=== PATIENT | female | born 1955 | race Caucasian/White ===

== ENCOUNTER 2020-08-15 14:39 | Emergency (ER) | payer MEDICARE, SELFPAY ==
--- NOTE | ~2020-08-15 | XR_ITS ---
EXAMINATION: XR chest 2V EXAM DATE: 08/15/2020 15:10 INDICATION: Back pain with fever . TECHNIQUE: Frontal and lateral projections of the chest obtained and reviewed. There is no prior melisa dy for comparison. FINDINGS: The lungs are clear. There are no pleural effusions. The cardiomediastinal silhouette is within normal limits. There is no pneumothorax suspected. Mild lower thoracic dextroscoliosis. IMPRESSION: No acute cardiopulmonary findings. Reviewed, dictated and finalized at location A. 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
[2020-08-15 14:57] VITALS: O2SAT 100
[2020-08-15 15:00] VITALS: BP 143/83; PULSE 102; RESP 18; TEMP 37.9; O2SAT 100
--- NOTE | 2020-08-15 15:14 | ED.BACK ---
HPI - Back Pain/Injury General Chief Complaint: Back Pain/Injury Stated Complaint: Back Pain Source: patient and RN notes reviewed Limitations: no limitations History of Present Illness HPI Narrative: The patient, a non-smoker/nondrinker, presents with left-sided, upper back pain. Patient states she is on minimal meds only for HTN, without meds for risk factors of HLD, AODM, early cardiac FMH. She now complains of a shorter 1 day history of left chest pain, posteriorly- that is worse with movement or deep breathing. No rash, known fever, cough, S OB, calf pain/edema, precordial CP, recent trips loss, loss of taste / smell; no frequency/urgency/dysuria, hematuria. She comments this is like muscular pain she had on the opposite side years ago; she has a prior normal cardiac stress test in remote past. Patient advised to go to hospital for further testing, which she declines repeatedly. Related Data Home Medications Medication Instructions Recorded Confirmed bupropion HCl mg PO 08/15/20 triamterene-hydrochlorothiazid tablet 08/15/20 Allergies Allergy/AdvReac Type Severity Reaction Status Date / Time No Known Allergies Allergy Mild Unverified 09/05/08 13:29 Review of Systems Review of Systems: Narrative: General/Constitutional: No weight loss,fever Eyes: N0: Redness,discharge Ears/Nose/Throat: No: Epistaxis,ear discharge Respiratory: Denies: Hemoptysis Gastrointestinal: No Vomiting, Bleeding-rectal Skin: No Lumps, eruption Neurologic: No Focal Weakness,Sz Hematologic: Denies: Petechiae/Purpura Psychiatric: No: Suicida ideationl All Other Systems: Reviewed and Negative [facility] Comments At time of signature, agree with nursing past medical, surgical, social and family history. There is no relevant family history pertinent to the presenting complaint Exam Narrative: Exam Narrative: General Appearance: Well appearing, No distress EYE: PERRLA, Conjunctiva clear Ears: External ear normal Nose: Normal nose Mouth/Throat: Normal appearing, Normal lips, Supple Respiratory: Airway patent, No respiratory distress Cardiovascular: RRR, point tender left rhomboid Abdomen: Soft, Non-tender, Musculoskeletal: Full ROM Skin: Warm, Dry Neurological: A&O x3, CN II-X intact Psychiatric: Normal mood, Normal affect Course Course Emergency Course: Films visualized, interpreted by radiologist, agree, normal see report EKG: BORDERLINE -normal sinus rhythm @ 92, poss left atrial enlargement, normal axis, minor ST-T changes, no ST elevation, poss IC RBBB Vital Signs Vital signs: Vital Signs Pulse Oximetry 100 08/15/20 14:57 Temperature 98.7 F 08/15/20 16:17 Pulse Rate 102 H 08/15/20 15:28 Respiratory Rate 18 08/15/20 15:28 Blood Pressure 143/83 H 08/15/20 15:28 Pulse Oximetry 100 08/15/20 15:28 MDM - Back Pain/Injury Lab Data Labs: Lab Results 08/15/20 Range/Units 15:28 POC SARS CoV-2 Ag Negative (Negative) Discharge Plan Discharge Clinical Impression: Pleuritic chest pain Patient Disposition: Left Against Medical Advice Condition: Improved Instructions: Pleurisy (ED) Additional Instructions: Advised to go to higher-level care facility to higher level testing because for early diagnosis of serious problems [ACS,PE,etc], clear specific symptoms do not develope until later. You have declined admission, so go to hospital [facility] if not improved & ensure you see your PMD Prescriptions: New azithromycin 250 mg tablet See Rx Instructions .ROUTE .COMPLEX Qty: 6 RF: 0 prednisone 20 mg tablet 60 mg PO DAILY Qty: 9 RF: 0 tramadol 50 mg tablet 50 mg PO TID PRN (Reason: pain) Qty: 15 RF: 1 aspirin [Adult Aspirin Regimen] 81 mg tablet,delayed release (DR/EC) 81 mg PO DAILY Qty: 30 RF: 0 No Action triamterene-hydrochlorothiazid 75-50 mg tablet RF: 0 bupropion HCl 150 mg tablet extended release 24 hr PO RF: 0
[2020-08-15 15:28] VITALS: BP 143/83; PULSE 102; RESP 18; TEMP 37.9; O2SAT 100
--- NOTE | 2020-08-15 15:33 | ECG_ITS ---
Measurements Intervals [place] Rate: 92 P: 39 CT: 144 QRS: 33 QRSD: 80 T: 14 QT: 354 QTc: 439 Interpretive Statements SINUS RHYTHM POSSIBLE LEFT ATRIAL ENLARGEMENT INCOMPLETE RIGHT BUNDLE BRANCH BLOCK BORDERLINE ST ABNORMALITY- ANTEROLAT/INF LEADS BORDERLINE ECG Electronically Signed On 08-15-2020 16:53:43 NETWORK DIRECTOR by Mohit Magdaleno D.O.
[2020-08-15] MEDS: KETOROLAC (*BKC) 60 MG/2 ML VIAL IM (15:39)
[2020-08-15] MEDS: predniSONE 20 MG TABLET 60 MG PO (15:39)
[2020-08-15 16:17] VITALS: TEMP 37.1
== END 2020-08-15 16:19 | disposition left against medical advice (07) ==
PROVIDERS: Emergency Provider Emergency Medicine; PCP Internal Medicine
DX: R07.81 Pleurodynia (principal); Z20.822 Contact with and (suspected) exposure to COVID-19; I10 Essential (primary) hypertension; I45.10 Unspecified right bundle-branch block
CPT/HCPCS: 71046; 87426; 93005; 96372; 99213; C9803; G0463; J1885; J7512

== ENCOUNTER → 2021-01-26 16:11 | Outpatient (CLI) | payer MEDICARE, SELFPAY ==
--- NOTE | ~2021-01-26 | MM_ITS ---
EXAMINATION: MM screening talia BI w maryanne HISTORY: Screening TECHNIQUE: Craniocaudal and mediolateral oblique 3-D tomosynthesis images were obtained and synthetic 2-D images were generated. CAD analysis was submitted and interpreted. COMPARISON: Comparison to multiple prior studies sequentially, with oldest reviewed study dated 05/26. BREAST PARENCHYMAL COMPOSITION: There are scattered areas of fibroglandular density. FINDINGS: There are developing left breast masses centered in the outer aspect of the left breast. Th e right breast is stable without evidence for malignancy. IMPRESSION: 1. Developing left breast masses. 2. Additional mammographic views and possible breast ultrasound are recommended. BI-RADS Category 0: Incomplete: Needs additional imaging evaluation. Reviewed, dictated and finalized at location A. IMPRESSION: 1. Developing left breast masses. 2. Additional mammographic views and possible breast ultrasound are recommended . BI-RADS Category 0: Incomplete: Needs additional imaging evaluation.
== END ==
PROVIDERS: PCP Internal Medicine; Visit Provider Obstetrics & Gynecology
DX: Z12.31 Encounter for screening mammogram for malignant neoplasm of breast (principal); R92.8 Other abnormal and inconclusive findings on diagnostic imaging of breast
CPT/HCPCS: 77063; 77067

== ENCOUNTER 2021-02-15 09:59 | Outpatient (CLI) | payer MEDICARE, SELFPAY ==
--- NOTE | ~2021-02-15 | MMUS_ITS ---
EXAMINATION: MM diagnostic talia LT w maryanne, US breast LT limited HISTORY: Left breast mass on screening mammogram TECHNIQUE: Additional 3-D tomosynthesis images of the left breast were performed and synthetic 2-D im ages were generated. CAD analysis was submitted and interpreted. High resolution limited left breast ultrasound was performed. COMPARISON: 01/26/2021, 11/23/2018, 11/09/2017 FINDINGS: MAMMOGRAPHIC FINDINGS: There is a 6 mm x 4 mm oval, obscured, equal density mass in the anterior third of the breast at the 4:00 location 1.5 cm from the nipple. No suspicious calcification or architectural distortion are da ntified. ULTRASOUND: There is a 6 mm x 4 mm oval, circumscribed, parallel, hypoechoic mass with posterior acoustic enhance ment and no internal vascularity at the 4:00 location near the nipple. There is a 6 mm cyst at the 12 :00 location 5 cm from the nipple. A 5 mm cyst is present at the 4:00 location 1 cm from the nipple. IMPRESSION: 1. Indeterminate left breast mass at the 4:00 location near the nipple. 2. Ultrasound-guided biopsy is recommended. BI-RADS category 4, suspicious findings. Reviewed, dictated and finalized at location A. IMPRESSION: 1. Indeterminate left breast mass at the 4:00 location near the nipple. 2. Ultrasound-guided biopsy is recommended. BI-RADS category 4, suspicious findings.
== END 2021-02-15 10:00 | disposition home or self-care (01) ==
PROVIDERS: PCP Internal Medicine; Visit Provider Obstetrics & Gynecology
DX: R92.8 Other abnormal and inconclusive findings on diagnostic imaging of breast (principal)
CPT/HCPCS: 76642; 77061; 77065; G0279

== ENCOUNTER → 2022-03-03 14:54 | Outpatient (CLI) | payer MEDICARE, SELFPAY ==
--- NOTE | ~2022-03-03 | DEXA_ITS ---
Bone Density Report Name: FIONA CARMONA Age: 66 Sex: Female Ethnicity: White Date of : 1955 Indication: osteopenia; postmenopausal Referring Provider: MARLYS, ANDREW Dhaliwal Study: Bone densitometry was performed. Exam Date: March 03, 2022 Accession number: [id number] Bone Density: Region BMD T-score Z-score Classification AP Spine (L1, L2) 0.858 -1.1 0.7 Osteopenia Femoral Neck (Left) 0.644 -1.8 -0.2 Osteopenia Total Hip (Left) 0.803 -1.1 0.2 Osteopenia Femoral Neck (Right) 0.688 -1.5 0.2 Osteopenia Total Hip (Right) 0.824 -1.0 0.4 Normal Total Hip Mean 0.814 -1.1 0.3 Osteopenia World Health Organization criteria for BMD impression classify patients as: Normal (T-score at or above -1.0), Osteopenia (T-score between -1.0 and -2.5), or Osteoporosis (T-score at or below -2.5). 10-year Fracture Risk(1): Major Osteoporotic Fracture 10% Hip Fracture 1.5% Reported Risk Factors: [place] (), Neck BMD=0.644, BMI=23.3 (1) FRAX(R) Version 3.08. Fracture probability calculated for an untreated patient. Fracture probability may be lower if the patient has received treatment. Previous Exams: Region Exam Age BMD T-score BMD Change BMD Change Date g/cm2 vs Baseline vs Previous AP Spine(L1, L2) 03/03/2022 66 0.858 -1.1 -0.012 -0.012 11/23/2018 62 0.870 -1.0 Total Hip(Left) 03/03/2022 66 0.803 -1.1 -0.002 -0.002 11/23/2018 62 0.805 -1.1 Total Hip(Right) 03/03/2022 66 0.824 -1.0 -0.004 -0.004 11/23/2018 62 0.829 -0.9 *Denotes significance at 95% confidence level, LSC for AP Spine = 0.022 g/cm2, LSC for Total Hip = 0.027 g/cm2 Clinical Information Provided by Patient: Has used the following medications: Vitamin D, Calcium Patient maximum height was 61.5 Menopause Age: 53 No regular weight bearing exercise Does not regularly consume dairy products Drinks caffeinated beverages Onset of menses at age 12 Number of children 4 Impression: The patient has low bone mass, based on the Left Femoral Neck T-score. The patient has an estimated ten-year risk of hip fracture of 1.5% and an estimated ten-year risk of major fracture of 10%, based on the WHO FRAX algorithm. No significant bone loss was observed. Discussion: BONE DENSITY IS LOW AT ONE OR MORE SKELETAL SITES. This patient's lowest T-score is low at one or more skeletal sites. It meets the World Health Organi
== END ==
PROVIDERS: PCP Internal Medicine; Visit Provider Internal Medicine
DX: Z78.0 Asymptomatic menopausal state (principal); M85.851 Other specified disorders of bone density and structure, right thigh; M85.88 Other specified disorders of bone density and structure, other site; M85.852 Other specified disorders of bone density and structure, left thigh
CPT/HCPCS: 77080

== ENCOUNTER 2022-04-09 14:02 | Emergency (ER) | payer MEDICARE, SELFPAY ==
[2022-04-09 14:28] VITALS: BP 135/70; PULSE 86; RESP 18; TEMP 37.1; O2SAT 100
--- NOTE | 2022-04-09 14:43 | ED.ANIMALBIT ---
HPI - Animal Bite General Chief Complaint: Animal Bite Stated Complaint: cat bite Time Seen by Provider: 04/09/22 14:35 Source: patient, RN notes reviewed and old records reviewed Mode of arrival: ambulatory Limitations: no limitations History of Present Illness HPI narrative: 66-year-old female who presents to express care with complaints of being at the animal residential today in [facility] to help during an adoption event and sustained a cat bite to her right hand from one of the kitten. Patient reports that she cleansed area with Betadine immediately after it happened. Puncture wounds X4 noted to right hand and one to radial aspect of dorsal wrist. Patient states discomfort to right dorsal web space between thumb and index finger as being most uncomfortable area with some swelling noted. Patient reports that her tetanus is not up to date. MD complaint: animal bite Onset (ago): hour(s) (at 1000 today) Animal: cat Description of animal: appeared well Treatments prior to arrival: other (cleansed with Betadine) Related Data Patient tetanus UTD: No Home Medications Medication Instructions Recorded Confirmed bupropion HCl 150 mg 24 hr tablet, 1 mg PO DAILY 08/15/20 extended release triamterene 75 0.5 tablet DAILY 08/15/20 mg-hydrochlorothiazide 50 mg tablet Allergies Allergy/AdvReac Type Severity Reaction Status Date / Time No Known Allergies Allergy Mild Verified 04/09/22 14:34 Review of Systems Review of Systems: CONSTITUTIONAL: Denies fever, chills, or sweats. CARDIOVASCULAR: Denies chest pain, palpitations, or edema. RESPIRATORY: Denies cough or dyspnea. GASTROINTESTINAL: Denies abdominal pain, nausea, vomiting SKIN: Positive for cat bites to right hand and one bite to radial area of wrist, no drainage noted. MUSCULOSKELETAL: Denies myalgia. NEUROLOGIC: Denies headache, numbness All systems reviewed & are unremarkable except as noted in HPI and below PMFSH Past Medical History Medical History (Updated 04/09/22 @ 16:39 by Lurdes Hargrove NP) Depression Hypertension Surgical History Surgical History (Updated 04/09/22 @ 16:39 by Lurdes Hargrove NP) History of appendectomy History of rotator cuff surgery Social History Social History (Updated 04/09/22 @ 16:39 by Lurdes Hargrove NP) Smoking status: Never smoker Living arrangements: with family Gender identity (if verbalized by the patient): Female Comments At time of signature, agree with nursing past medical, surgical, social and family history. There is no relevant family history pertinent to the presenting complaint Exam Narrative: GENERAL: Well-appearing, well-nourished, and in no acute distress. HEAD: Normocephalic, atraumatic. EYES: PERRLA and EOMI. ENT: Nares clear, no rhinorrhea or epistaxis. Mucous membranes moist. NECK: Supple.no lymphadenopathy CHEST: Clear to auscultation. No respiratory distress. SAO2 100% on room air HEART: Regular rate and rhythm. No murmur heard. Normal peripheral pulses. ABDOMEN: Soft, nontender, nondistended, normal active bowel sounds. EXTREMITIES: Normal range of motion. No edema. SKIN: Warm, dry. puncture weston noted to right hand X4 with some swelling at web space between thumb and index finger, no drainage from sites, puncture wound at radial aspect of wrist.Patient has brisk capillary refill to nail beds, strong right radial pulse. NEURO: No focal deficits. Alert and oriented x3. Course Course Emergency Course: Patient is aware of diagnosis, understands and agrees to treatment plan. Anticipatory guidance given. Patient agrees to follow-up as directed and is aware of reasons to seek care at the emergency department. Portions of this record may have been created with voice recognition software Level of Care: Express Care Visit Vital Signs Vital signs: Vital Signs Temperature 37.1 C 04/09/22 14:28 Pulse Rate 86 04/09/22 14:28 Respiratory Rate 18 04/09/22 14:28 Blood Pressure
[2022-04-09] MEDS: TETANUS,DIPHTHERIA,AC PERTUSSIS ADULT (0.5 ML) BOOSTRIX IM (14:56)
== END 2022-04-09 15:10 | disposition home or self-care (01) ==
PROVIDERS: Emergency Provider Registered Nurse; PCP Internal Medicine
DX: S61.431A Puncture wound without foreign body of right hand, initial encounter (principal); W55.01XA Bitten by cat, initial encounter; Z23 Encounter for immunization; I10 Essential (primary) hypertension; F32.A Depression, unspecified
CPT/HCPCS: 90471; 90715; 99213; G0463

== ENCOUNTER → 2022-04-18 15:26 | Outpatient (CLI) | payer MEDICARE, SELFPAY ==
--- NOTE | ~2022-04-18 | XR_ITS ---
XR lumbar spine 2-3V DATE: 04/18/2022 15:41 INDICATION: Lumbago and sciatica, bilateral TECHNIQUE: AP, lateral, coned lateral lumbosacral views COMPARISON: None FINDINGS: Osteopenia. Minimal levoscoliosis of the lower thoracic and lumbar spine. There is normal alignment of the lumbar spine. No fracture or bone destruction is detected. Included lower thoracic and lumbar pedicles are intact. Moderately severe degenerative disc disease at L1-2, L2-3, L3-4. Mild degenerative disc disease at L4 -5 and L5-S1. The sacroiliac joints are intact but with degenerative change. IMPRESSION: Multilevel degenerative disc disease, most prominent in the upper and mid lumbar area Osteopenia. Minimal levoscoliosis Reviewed, dictated and finalized at location A. IMPRESSION: Multilevel degenerative disc disease, most prominent in the upper a nd mid lumbar area Osteopenia. Minimal levoscoliosis
== END ==
PROVIDERS: PCP Internal Medicine; Visit Provider Registered Nurse
DX: M54.42 Lumbago with sciatica, left side (principal); M54.41 Lumbago with sciatica, right side; M51.36 Other intervertebral disc degeneration, lumbar region; M85.88 Other specified disorders of bone density and structure, other site
CPT/HCPCS: 72100

== ENCOUNTER 2023-11-25 08:27 | Outpatient (CLI) | payer MEDICARE, SELFPAY ==
--- NOTE | ~2023-11-25 | MM_ITS ---
EXAMINATION: MM screening talia BI w maryanne HISTORY: Screening mammogram TECHNIQUE: Craniocaudal and mediolateral oblique 3-D tomosynthesis images were obtained and synthetic 2-D images were generated. CAD analysis was submitted and interpreted. COMPARISON: 02/15/2021 diagnostic left mammogram and Limited left breast ultrasound; 6 x 4 monitor ova l circumscribed parallel hypoechoic mass with posterior acoustic enhancement and no internal vascular ity of 4:00 location near nipple was reported as indeterminate and ultrasound-guided biopsy was recom mended. 01/26/2021 bilateral screening mammogram BREAST PARENCHYMAL COMPOSITION: The breasts are heterogeneously dense, which may obscure small masses . FINDINGS: Biopsy marker is noted in the anterior outer mid left breast; history of prior benign biops y at this site. There is no evidence of suspicious mass, calcification, or architectural distortion t o suggest malignancy in either breast. There has been no suspicious interval change. IMPRESSION: 1. No mammographic evidence of malignancy. 2. Recommend routine screening mammography in one year. BI-RADS Category 1: Negative Reviewed, dictated and finalized at location A.
== END 2023-11-25 08:28 | disposition home or self-care (01) ==
LOC: ANHIMG 08:33
PROVIDERS: PCP Emergency Medicine; Visit Provider Registered Nurse
DX: Z12.31 Encounter for screening mammogram for malignant neoplasm of breast (principal)
CPT/HCPCS: 77063; 77067

== ENCOUNTER 2024-04-17 09:08 | Outpatient (CLI) | payer MEDICARE, SELFPAY ==
--- NOTE | ~2024-04-17 | DEXA_ITS ---
Bone Density Report Name: FIONA NAVA Age: 68 Sex: Female Ethnicity: White Date of : 1955 Indication: osteopenia; Referring Provider: NHI SIMONS Study: Bone densitometry was performed. Exam Date: April 17, 2024 Accession number: [id number] Bone Density: Region BMD T-score Z-score Classification AP Spine(L1-L4) 0.939 -1.0 1.1 Normal Femoral Neck (Left) 0.628 -2.0 -0.2 Osteopenia Total Hip (Left) 0.808 -1.1 0.4 Osteopenia Femoral Neck (Right) 0.635 -1.9 -0.2 Osteopenia Total Hip (Right) 0.794 -1.2 0.3 Osteopenia Total Hip Mean 0.801 -1.2 0.4 Osteopenia World Health Organization criteria for BMD impression classify patients as: Normal (T-score at or above -1.0), Osteopenia (T-score between -1.0 and -2.5), or Osteoporosis (T-score at or below -2.5). 10-year Fracture Risk(1): Major Osteoporotic Fracture 11% Hip Fracture 2.0% Reported Risk Factors: [place] (), Neck BMD=0.628, BMI=23.6 (1) FRAX(R) Version 3.08. Fracture probability calculated for an untreated patient. Fracture probability may be lower if the patient has received treatment. Previous Exams: Region Exam Age BMD T-score BMD Change BMD Change Date g/cm2 vs Baseline vs Previous Total Hip(Left) 04/17/2024 68 0.808 -1.1 0.054 (7.2%)* 0.054 (7.2%)* 04/17/2024 68 0.754 -1.5 *Denotes significance at 95% confidence level, LSC for Total Hip = 0.027 g/cm2 Clinical Information Provided by Patient: Has used the following medications: Vitamin D, Calcium Patient maximum height was 61.5 No regular weight bearing exercise Does not regularly consume dairy products Drinks caffeinated beverages Onset of menses at age 12 Number of children 4 Impression: The patient has low bone mass, based on the Left Femoral Neck T-score. The patient has an estimated ten-year risk of hip fracture of 2% and an estimated ten-year risk of major fracture of 11%, based on the WHO FRAX algorithm. No significant bone loss was observed. Discussion: BONE DENSITY IS LOW AT ONE OR MORE SKELETAL SITES. This patient's lowest T-score is low at one or more skeletal sites. It meets the World Health Organization's (WHO) criteria for ?low bone mass? (T-score between -1.0 and -2.5). The patient's 10-year risk of fracture as calculated by FRAX is less than the threshold where pharmacological therapy is recommended by the National Osteoporosis Foundation (NOF). However, all treatment decisions require clinical judgment and consideration of individual patient factors, including patient preferences, comorbidities, previous drug use, risk factors not captured in the FRAX model (e.g., frailty, falls, vitamin D deficiency, increased bone turnover, interval significant decline in bone density) and possible under or overestimation of fracture risk by FRAX. The patient should follow a healthful lifestyle (good nutrition with adequate calcium and vitamin D, and appropriate weight-bearing exercise). Follow-Up: Consider repeating this study in 2 to 3 years to reassess this patient's status, or sooner if there is some new clinical indication. Reported by: ALEYDA on 04/17/2024 9:40:00 AM. Reviewed, dictated and finalized at location A. JUAN ALBERTO
== END 2024-04-17 09:09 | disposition home or self-care (01) ==
LOC: ANHIMG 09:09
PROVIDERS: PCP Emergency Medicine; Visit Provider Emergency Medicine
DX: M85.852 Other specified disorders of bone density and structure, left thigh (principal); M85.851 Other specified disorders of bone density and structure, right thigh
CPT/HCPCS: 77080

== ENCOUNTER 2024-11-25 11:58 | Outpatient (CLI) | payer MEDICARE, SELFPAY ==
--- NOTE | ~2024-11-25 | MM_ITS ---
EXAMINATION: MM screening [facility] BI w maryanne INDICATION: Asymptomatic, referred for screening mammogram COMPARISON: 11/25/2023 through 09/14/2015 TECHNIQUE: Digital breast tomosynthesis craniocaudal and mediolateral oblique views of Both breasts w ere obtained with computer-aided detection to assist in interpretation of the study. FINDINGS: There are scattered areas of fibroglandular density. No focal dominant mass, architectural distortion, or suspicious microcalcifications are identified. B iopsy in the left breast. There are no features to suggest malignancy. IMPRESSION: No evidence of malignancy in the breast. Recommend continued screening mammography BI-RADS 1, NEGATIVE Reviewed, dictated and finalized at location B.
--- OUTSIDE RECORDS SUMMARY | 2024-11-25 12:09 | XMS_ITS | Clinical Summary ---
Author Organization [facility] [employer] Address [address] 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 This disclosure is being madepursuant to the Care Everywhere program and may not contain all information available regarding this patient. 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 Gender Identity Not on file Sexual Orientation Not on file Plan of Treatment Health Maintenance Due Date Last Done Comments BONE DENSITY TESTING 1955 COLOGUARD (AGES 45-75) - COL ON CA SCREENING 1955 COLON MONITORING 1955 COLONOSCOPY - COLON CA SCREENING 1955 CT COLONOGRAPHY - COLON CA SCREENING 1955 Colorectal Cancer Screening 1955 FIT - COLON CA SCREENING 1955 FLEX SIG - COLON CA SCREENING 1955 LIPID TESTING 1955 MAMMOGRAM 1955 HEPATITIS C SCREENING 12/19/1972 DTAP/TDAP/TD VACCINES (1 - Tdap) 1973 PNEUMOCOCCAL VACCINE 50+ (1 of 1 - PCV) 2004 ZOSTER VACCINE (1 of 2) 2004 COVID-19 VACCINE ( - 2023-2 5 season) 2024 DEPRESSION SCREENING 06/26/2024 INFLUENZA VACCINE (Season Ended) 2025 Respiratory Syncytial Virus (RSV) Vaccine Pt: or over 60 yrs (1 - 1-dose 75+ series) 2029 HEPATITIS B VACCINE Aged Out No longe r eligible based on patient's age to complete this topic HIB VACCINE Aged Out No longer eligi ble based on patient's age to complete this topic HPV VACCINE Aged Out No longer eligi ble based on patient's age to complete this topic MENINGOCOCCAL (Group B) VACC INE SHARED DECISION-MAKING Aged Out No longer eligibl e based on patient's age to complete this topic MENINGOCOCCAL GROUPS A/C/Y/W VACCINE Aged Out No longer eligible b ased on patient's age to complete this topic
--- OUTSIDE RECORDS SUMMARY | 2024-11-25 12:09 | XMS_ITS | Data Portability ---
Author Organization [facility] , [facility] Address [address] [place] [address] Assessment No assessment recorded. Plan of Treatment Reminders Order Date Submit Date Provider Last Modified By Organization Details Last Modified Time Details Appointments None recorded. Lab HPV E6+E7 mRNA, qualitative PCR, cervix 2021 [facility], [address] [place], [address], 16:45:10 pap, LB 2021 [facility], [address] [place], [address], 16:10:36 Referral None recorded. Procedures None recorded. Surgeries None recorded. Imaging None recorded. Medication Orders estradiol 0.01% (0.1 mg/gram) vaginal cream 2021 [id number], [address] [facility], [place], [place], [id number], 11:17:31 Patient TargetsNo targets recorded. Patient InstructionsNo instructions recorded. Reason for Referral None Reported. Results Created Date Observation Date Name Description Value Unit Range Abnormal Flag Note LastModifiedBy Organization Detail LastModifiedTime 06/11/2006/15/2022 HPV HIGH RISK HPV high risk Negati ve negati ve normal The HPV High Risk assay is inten ded for use as co-te sting with cytol ogy and not as a subst itute for regul ar cervi delilah cytol ogy scree hansa. This assay is not inten ded for use as a scree hansa devic e for women under age 30 with danitza l cervi delialh cytol ogy. Not Available [facility] [address] [place], [address], 06/15/2022 16:45:10 06/11/20 22 06/16/2022 THINP REP TIS PAP clinical information: normal None given Not Available [address] [place], [address], 06/16/2022 16:10:36 06/11/20 22 06/16/2022 THINP REP TIS PAP LMP: normal NONE GIVEN Not Available [address], [address], 06/16/2022 16:10:36 06/11/20 22 06/16/2022 THINP REP TIS PAP prev. Pap: normal NONE GIVEN Not Available [address] [place], [address], 06/16/2022 16:10:36 06/11/20 22 06/16/2022 THINP REP TIS PAP prev. BX: normal NONE GIVEN Not Available [address] [place], [address], 06/16/2022 16:10:36 06/11/20 22 06/16/2022 THINP REP TIS PAP source: normal Cervi x Not Available [address] [place], [address], 06/16/2022 16:10:36 06/11/20 22 06/16/2022 THINP REP TIS PAP statement of adequacy: normal Satis facto ry for evalu ation . Endoc ervic al/tr ansfo rmati on zone compo nent prese nt. Not Available [address] [address] [place], [address], 06/16/2022 16:10:36 06/11/20 22 06/16/2022 THINP REP TIS PAP interpretati on/result: normal Negat geetha for intra epith elial lesio n or [place] alonzo . Not Available [address] [address] [place], [address], 06/16/2022 16:10:36 06/11/20 22 06/16/2022 THINP REP TIS PAP comment: normal This Pap test has been evalu ated with compu melgar techn ology . Not Available [address] [address] [place], [address], 06/16/2022 16:10:36 06/11/2006/16/2022 THINP REP TIS PAP cytotechnolo gist: normal MV[facility], CT( CP) CT Scree hansa Locat ion: [address] [address] [place] [address] Not Available [address] [address] [place], [address], 06/16/2022 16:10:36 06/11/20 22 06/16/2022 THINP REP TIS PAP comment EXPLA NATOR Y NOTE: The Pap is a scree hansa test for cervi delilah cance r. It is not a diagn ostic test and is subje ct to false negat geetha and false posit geetha resul ts. It is most relia ble when a satis facto ry sampl e, regul palma obtai veto, is submi tted with relev ant clini delilah findi ngs and histo ry, and when the Pap resul t is evalu ated along with histo donn and curre nt clini delilah infor matio n. Not Available [address] [address] [place], [address], 06/16/2022 16:10:36 Result Notes None recorded. Problems Name Problem SNOMED Code Status Onset Date Resolution Date Notes Provider Name and Address Organization Details Recorded Time Atrophic vaginitis 41382162 Active 2017 Postmenopa usal atrophic vaginitis; Location: None Severity: Moderate Progress: Stable Added By: Raquel Davis Add to Current Problems: YES ProblemSta tus: Current Po stmenopaus al atrophic vaginitis; Severity: Moderate Progress: Stable Added By: Raquel Davis Add to Current Problems: YES ProblemSta tus: Current Not Available [facility] 11:50:43 Problem Notes None recorded. Procedures Surgical History Date Name Laterality Status Provider Name and Address Organization Details Recorded Time 06/11/20 22 Date of Last Pap Smear completed Devora Colin MD [address] [place] [address], [phone], [facility] 06/17/2022 01:04:16 01/29/20 22 Most Recent Bone Density completed Devora Coiln MD [address] [place] [address], [phone], [facility] 06/11/2022 17:30:08 06/26/19 22 Most Recent Mammogram completed Devora Colin MD [address] [place] [address], [phone], [facility] 06/11/2022 17:30:08 11/09/19 19 completed Devora Colin MD [address] [place] [address], [phone], [facility] 06/11/2022 09:54:47 complete repair of rotator cuff completed Devora Colin MD [address] [place] [address], [phone], [facility] 06/11/2022 09:55:32 Appendectomy completed Devora Colin MD [address] [place] [address], [phone], [facility] 06/11/2022 10:00:07 endometrial balloon ablation completed Devora Colin MD [address] [place] [address], [phone], [facility] 06/11/2022 10:00:55 Colonoscopy completed Devora Colin MD [address] [place] [address], [phone], [facility] 06/11/2022 17:30:39 Imaging Results None recorded. Procedure Notes None recorded. Medical Equipment None Reported. Allergies No known drug allergies Medications Name Sig Start Date Stop Date Status Note LastModified by Organization Details LastModified Time cyclobenz aprine 10 mg tablet active Not Available Not Available No t Available amoxicill in 500 mg capsule TAKE 1 CAPSULE BY MOUTH THREE TIMES DAILY FOR 7 DAYS 06/11 completed Not Available Not Available Not Available hydrocodo ne 5 mg-acetam inophen 325 mg tablet TAKE 1 TABLET BY MOUTH EVERY 6 HOURS NEEDED FOR PAIN 06/11 completed Not Available Not Available Not Available prednison e 20 mg tablet TAKE 2 TABLETS BY MOUTH DAILY FOR 4 DAYS THEN TAKE 1 TABLET BY MOUTH DAILY FOR 3 DAYS 06/11 completed Not Available Not Available Not Available ciproflox acin 500 mg tablet 07/15 completed Not Available Not Available Not Available meloxicam 7.5 mg tablet TAKE 1 TABLET BY MOUTH EVERY DAY NEEDED 06/11 completed Not Available Not Available Not Available omeprazol e 20 mg capsule,d elayed release active Not Available Not Available Not Available hydroxyzi ne HCl 25 mg tablet active Not Available Not Available No t Available mupirocin 2 % topical ointment 06/11 completed Not Available Not Available Not Available triamtere ne 75 mg-hydroc hlorothia zide 50 mg tablet TAKE 1/2 TABLET BY MOUTH DAILY active Not Available Not Available No t Available estradiol 0.01% (0.1 mg/gram) vaginal cream INSERT 0.5 GRAM VAGINALL Y 2 TIMES A WEEK active Not Available Not Available No t Available methylpre dnisolone 4 mg tablets in a dose pack FOLLOW PACKAGE DIRECTIO NS 07/15 completed Not Available Not Available Not Available cholecalc iferol (vitamin D3) 125 mcg (5,000 unit) capsule 1 po qd 2017 active cholecal ciferol (vitamin D3) 125 mcg (5,000 unit) oral capsule RxNorm: [id number] Allow Substitu tion: True Refill Denied: No Refill DateOccu rred: 10/24/19 18 Edited by: Raquel Kaiser ) on 01/09/20 21 Stopped by: nish jesus(Raquel Rodríguez ) on Not Available Not Available Not Available amoxicill in 875 mg-potass ium clavulana te 125 mg tablet TAKE 1 TABLET BY MOUTH EVERY 12 HOURS UNTIL ALL TAKEN. TAKE WITH FOOD. 06/11 completed Not Available Not Available Not Available Premarin 0.625 mg/gram vaginal cream insert 0.5 gram by vaginal route twice weekly 07/15 completed Premarin 0.625 mg/gram Vaginal Cream RxNorm: [id number] Allow Substitu tion: True Refill Denied: No Edited by: nish jesus(Raquel Rodríguez ) on 01/09/20 Stopped by: nish jesus(Raquel Rodríguez ) on Not Available Not Available Not Available bupropion HCl XL 150 mg 24 hr tablet, extended release active Not Available Not Available Not Available triamtere ne take 1 tablet by mouth daily 06/11 completed Triamter ponce 50mg Capsules Allow Substitu tion: True Refill Denied: No Refill DateOccu rred: 10/24/19 18 Edited by: Rianna Angela ) on 01/09/20 20 Stopped by: Rianna Angela ) on Not Available Not Available Not Available Wellbutri n 07/15 completed Wellbutr in RxNorm: 93206 Allow Substitu tion: False Refill Denied: No Refill DateOccu rred: 01/09/20 Edited by: nish jesus(Raquel Rodríguez ) on 01/09/20 Stopped by: nish jesus(Raquel Rodríguez ) on Not Available Not Available Not Available Premarin 0.5 gm per vagina twice a week 11/01 completed Premarin 0.625mg/ 1gm Vaginal Cream RxNorm: 084449 Allow Substitu tion: True Refill Denied: No Not Available Not Available Not Available Paxlovid 300 mg (150 mg x 2)-100 mg tablets in a dose pack DIRECTED 07/15 completed Not Available Not Available Not Available Vitals Date Recorded Body weight Body temperature Body mass index (BMI) Body height Systolic blood pressure Diastolic blood pressure Provider Name and Address Organization Details Last Updated DateTime 2 63331.0 5 g 97 [degF] 23.6 kg/m2 154.94 cm 110 mm[Hg] 70 mm[Hg] Jaz Kitchen [facility] 10:26:46 Social History Question Answer Notes LastModified by [employer] Details LastModified Time Tobacco Smoking Status Never Smoker Devora Colin MD [address] [place], [address], [facility] 06/11/2022 09:59:02 What Type Of Diet Are You Following? REGULAR Information not available 06/11/2022 What Is The Highest Grade Or Level Of School You Have Completed Or The Highest Degree You Have Received? [id number] Information not available 06/11/2022 How Many Children Do You Have? 4 Information not available 06/11/2022 What Is Your Relationship Status? Jake, Lives In [place] Information not available 06/11/2022 Are You Sexually Active? Yes Information not available 06/11/2022 Sex: Unknown Functional Status Question Answer Note LastModified by [employer] Details LastModified Time What is your level of alcohol consumption? 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 Never used electronic cigarettes Information not available 06/11/2022 What is your exercise level? Moderate Information not available 06/11/2022 Mental Status None recorded. Family History Relationship Description Onset Age of this Age Resolved Age Notes LastModified by Organization Details LastModified Time Father Hypertensive disorder [email or web address] Not available 10:29:41 Father Type 2 diabetes mellitus Not available 2021 17:29:53 Father Hypercholest erolemia Not available 2021 17:29:53 Father Heart disease Not available 2021 17:29:53 Father Myocardial infarction Not available 06/11 17:29:53 Maternal Grandmother Depressive disorder Not available 2021 17:29:53 Maternal Grandmother Malignant neoplasm of uterus Not available 2021 17:29:53 Mother Heart disease Not available 2021 17:29:53 Brother Depressive disorder Not available 2021 17:29:53 Paternal Grandmother Depressive disorder Not available 2021 17:29:53 Sister Depressive disorder Not available 2021 17:29:53 Medical History Condition Response Rubella Y High Blood Pressure Y Arthritis N History of Abnormal Pap Y Osteopenia Y Chicken Pox Y GERD (reflux) N Depression Y Gynecological History Statement/Question Response Date of LMP 06/26/2011 Most Recent Bone Density 01/28/2022 Date of Last Pap Smear 06/11/2022 Most Recent Mammogram 06/26/2021 Current Control Method Menopause Age at Menarche 12 11/08/2018 Obstetrics History GPAL:G 0 P 4 0 0 4 Type Value Full Term 4 Living 4 Past Encounters Encounter ID Performer Location Encounter Start Date Encounter Closed Date Diagnosis/Indication Diagnosis SNOMED-CT Code Diagnosis ICD10 Code Diagnosis Note [id number] Devora Colin MD [facility] [address] [place] [address] 06/11/2022 10:19:38 06/11/2022 18:24:02 Screening for malignant neoplasm of cervix 262949526 Z12.4 follow up pap. Gynecologi c examination 39478975 Z01.419 discussed healthy lifestyle, bone health (DEXA next August/ by primary), calcium and Vit D, vaccines and health screenings Atrophic vaginitis 06462 000 N95.2 refill estrogen vaginal cream to help with atrophy and dyspareuni a Health Concerns Section Related Observation LastModified by Organization Detai ls LastModified Time None Recorded Concern Status LastModified by Organization Details LastModified Time None Recorded Advance Directives Directive None Recorded Payers Insurance Date Sequence Insurance Name Policy Number Policy Sabillon Covered Member ID Sabillon Member ID Guarantor Name 07/12/2023 1 [employer] (O) [id number] Jihan Freeman [id number] Jihan Freeman Notes Date Note Type Note Provider Name and Address Organization Details Recorded Time 06/11/2022 text/html Jihan is a 66 yr old who is being seen today for an annual exam with papFormer patient of Dr. García, last seen 12/2020. 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 Enjoys travel, tries to stay active.Is up to date on her vaccines. Last pap was in 2019, 2 yrs. She does relate having an abn pap yrs ago where she had some type of procedure that was painful ?colposcopy. She had balloon endometrial ablation yrs ago. She gets her mammogram in June. Devora Colin MD [address] [facility], [place], [address], [facility] 06/11/2022 17:34:52 OBGyn Episode No OBEpisode recorded.
== END 2024-11-25 11:59 | disposition home or self-care (01) ==
LOC: CHSIMG 11:59
PROVIDERS: PCP Internal Medicine; Visit Provider Registered Nurse
DX: Z12.31 Encounter for screening mammogram for malignant neoplasm of breast (principal)
CPT/HCPCS: 77063; 77067